=== PATIENT | male | born 1960 | race Caucasian/White ===

== ENCOUNTER 2017-02-16 08:58 | Day surgery (SDC) | payer BC ==
[2017-02-14 14:48] VITALS: BMI 31.1
[~2017-02-16 08:58] MED LIST: LACTATED RINGERS 1,000 ML IV SCH
[2017-02-16 10:06] VITALS: TEMP 97.3
[2017-02-16] MEDS ORDERED: LIDOCAINE 1% 20 ML VIAL (10MG/ML) FOR IV START INTRADERMA ONE (10:07)
[2017-02-16] MEDS ORDERED: MIDAZOLAM 2 MG/2 ML VIAL ONE (10:32)
[2017-02-16] MEDS ORDERED: PROPOFOL 10 MG/ML 20 ML VIAL IV ONE (10:32)
[2017-02-16] MEDS ORDERED: fentaNYL (PF) 50 MCG/ML 2 ML AMP ONE (10:32)
--- NOTE | 2017-02-16 10:56 | P.PCN ---
Date of Procedure: 02/16/17 Procedure(s) Performed: BRIEF HISTORY: Patient is a 56-year-old pleasant white male, scheduled for an elective colonoscopy as a part of screening for colorectal neoplasia. PROCEDURE PERFORMED: Colonoscopy with biopsy. PREOPERATIVE DIAGNOSIS: Screening for colon cancer. IV sedation per Anesthesia. PROCEDURE: After informed consent was obtained, the patient, was brought into the endoscopy unit. IV sedation was administered by Anesthesia under continuous monitoring. Digital rectal examination was normal. Initially the Olympus CF- 160 flexible video colonoscope was then inserted in the rectum, gradually advanced into the cecum without any difficulty. Careful examination was performed as the scope was gradually being withdrawn. Ileocecal valve and the appendiceal orifice were visualized and appeared normal. Prep was excellent. Mucosa of the cecum, appeared normal. In the ascending colon there was a 5 mL polyp that was removed by biopsy. The rest of ascending colon, transverse colon , descending colon, sigmoid colon, and rectum appeared normal. Retroflexion was performed in the rectum and no lesions were seen. Scattered sigmoid diverticulosis seen. The patient tolerated the procedure well. IMPRESSION: 5 mm ascending colon polyp status post removal by biopsy. Scattered sigmoid diverticulosis. RECOMMENDATIONS: Findings of this examination were discussed with the patient as well as his family. He was advised to follow with the biopsy results. If the biopsy shows a tubular adenoma he can have a repeat colonoscopy in 5 years.
[2017-02-16 11:12] VITALS: PULSE 62
[2017-02-16 11:19] VITALS: BP 128/82; RESP 18
--- NOTE | 2017-02-20 17:45 | CDI ---
Date: 02/20/17 CDS/Director Digital Analytics Name: Ashlee Leigh Phone: If you have question, contact Dianna Adam System Consultant at [phone] M-F 8:30 am to 6pm. Patient Name: Luis Angel Naidu Admit Date: 02/16/17 Discharge Date: 02/16/17 ATTENTION: The Clinical Documentation Specialists (CDI) and [facility] Coding Staff appreciate your assistance in clarifying documentation. Please respond to the clarification below the line at the bottom and electronically sign. The CDI & [facility] Coding staff will review the response and follow-up if needed. Please note: Queries are made part of the Legal Health Record. If you have any questions, please contact the author of this message via ITS or call the System Consultant. Dr. Schulte Please provide clarification whether the polyp was removed with cold or hot biopsy Thank you for your assistance. Polyp removed by cold biopsy SHYLA
== END 2017-02-16 11:39 | disposition home or self-care (01) ==
LOC: ORWHC2ENDO 08:58
PROVIDERS: ATTEND Internal Medicine Gastroenterology
DX: Z12.11 Encounter for screening for malignant neoplasm of colon (principal); D12.2 Benign neoplasm of ascending colon; K57.30 Diverticulosis of large intestine without perforation or abscess without bleeding; E78.5 Hyperlipidemia, unspecified; Z79.899 Other long term (current) drug therapy
CPT/HCPCS: 88305; 45380; J2250; J3010; J2704

== ENCOUNTER 2021-01-26 22:30 | Emergency (ER) | payer BC, OTHER ==
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
[2021-01-27] MEDS ORDERED: SODIUM CHLORIDE 0.9% 50 ML IVPB ONE (00:45)
[2021-01-27] MEDS ORDERED: CASIRIVIMAB (REGN10933) (EUA) 600 MG, IMDEVIMAB (REGN10987) (EUA) 600 MG in SODIUM CHLO... IVPB ONE (01:00)
[2021-01-27 02:44] VITALS: BP 112/65; PULSE 67; RESP 18; TEMP 98.4
== END 2021-01-27 02:43 | disposition home or self-care (01) ==
LOC: EC 22:30
DX: U07.1 COVID-19 (principal); E78.5 Hyperlipidemia, unspecified; Z79.899 Other long term (current) drug therapy
CPT/HCPCS: 87635; 99285; Q0244